=== PATIENT | female | born 1980 | race American Indian/Alaskan Native ===

== ENCOUNTER 2022-01-13 18:07 | Observation (INO) | payer OTHER ==
[2022-01-13] MEDS ORDERED: oxyCODONE /ACETAMINOPHEN 5-325MG TAB PO PRN (19:18)
[2022-01-13] MEDS ORDERED: ONDANSETRON 4 MG/2 ML INJ IV PRN (19:18)
[2022-01-13] MEDS ORDERED: SODIUM CHLORIDE 0.9% 500 ML 500 ML IV ONE (19:21)
--- NOTE | 2022-01-13 19:23 | History and Physical Report ---
History of Present Illness Date of examination: 01/13/22 Date of admission: 01/13/2022 Chief complaint: Dizziness History of present illness: Patient with h/o AUB and symptomatic anemia who is presenting for direct admission for transfusion. Called this afternoon for Hgb of 5.5 to come in for blood transfusion. Complains of menorrhagia and dysmenorrhea for the past year, but no bleeding currently. Notes lightheadedness today, almost passing out when getting out of the shower. Also notes headache. Denies chest pain, palpitations, and SOB. . Notes after her first unit her headache and dizziness have improved some. Agrees to second unit of blood. Past History Past Medical History: no pertinent history Past Surgical History: other (BTL) Family/Genetic History: cancer (colon) Social history: no significant social history - Obstetrical History : 4 Para: 4 Hx # Term Pregnancies: 4 Number of Pregnancies: 0 Spontaneous Abortions: 0 Induced : 0 Number of Living Children: 4 Medications and Allergies Allergies Allergy/AdvReac Type Severity Reaction Status Date / Time No Known Allergies Allergy Unverified 01/13/22 18:09 Active Meds: Active Medications Acetaminophen (Acetaminophen 325 Mg Tab) 650 mg PO Q4H PRN PRN Reason: Pain MILD(1-3)/Fever >100.5/STUBBS Ondansetron HCl (Ondansetron 4 Mg/2 Ml Inj) 4 mg IV Q8H PRN PRN Reason: Nausea And Vomiting Oxycodone/Acetaminophen (Oxycodone /Acetaminophen 5-325mg Tab) 1 tab PO Q6H PRN PRN Reason: Pain, Moderate (4-6) Sodium Chloride (Sodium Chloride 0.9% 10 Ml Flush Syringe) 10 ml IV BID CHATA Sodium Chloride (Sodium Chloride 0.9% 10 Ml Flush Syringe) 10 ml IV PRN PRN PRN Reason: LINE FLUSH Review of Systems Constitutional: weakness, other (dizziness) Neurological: headaches Results Result Diagrams: 01/14/22 05:53 All other labs normal. Assessment and Plan Patient with Hgb 5.5 Admit to observation Will proceed with transfusion of PRBCs Type and crossed for 2 units Post transfusion H/H 4 hours following completion of transfusion - Patient Problems (1) Abnormal uterine bleeding (AUB) Current Visit: Yes Status: Acute (2) Symptomatic anemia Current Visit: Yes Status: Acute
[2022-01-13] MEDS: ACETAMINOPHEN 325 MG TAB PO PRN (20:48)
[2022-01-13] MEDS ORDERED: diphenhydrAMINE 25 MG CAP PO ONE (21:26)
[2022-01-13 21:27] LABS: Red Blood Count 4.42 M/mm3 (3.65-5.03)
[2022-01-13 21:28] LABS: Hematocrit 22.7 % (30.3-42.9); Hemoglobin 5.7 gm/dl (10.1-14.3); Mean Corpuscular HGB Conc 25 % (30-34); Mean Corpuscular Volume 52 fl (79-97); Platelet Count 116 K/mm3 (140-440); Red Cell Distribution Width 34.1 % (13.2-15.2)
[2022-01-13 22:36] LABS: Hypochromasia 3+; Total Cells Counted 100
[2022-01-13 22:37] LABS: Anisocytosis 3+; Dimorphic RBC Yes; Platelet Estimate Consistent w Auto
[2022-01-14 06:31] LABS: Hematocrit 24.5 % (30.3-42.9); Hemoglobin 6.5 gm/dl (10.1-14.3)
[2022-01-14] MEDS ORDERED: SODIUM CHLORIDE 0.9% 500 ML 500 ML IV SCH (07:00)
[2022-01-14] MEDS ORDERED: diphenhydrAMINE 25 MG CAP PO SCH (08:00)
[2022-01-14] MEDS: ACETAMINOPHEN 325 MG TAB PO PRN (11:53)
--- NOTE | 2022-01-14 12:49 | Progress Note ---
Assessment and Plan Patient s/p 1 unit prbcs wwith Hgb 5.5 ->6.5 Discussed with patient goal Hgb above 7. Recommend second unit to be transfused Will reassess H/H following transfusion If appropriate will discharge home. Patient to follow up for SIS/EMB on - Patient Problems (1) Abnormal uterine bleeding (AUB) Current Visit: Yes Status: Acute (2) Symptomatic anemia Current Visit: Yes Status: Acute Subjective - Subjective Date of service: 01/14/22 Principal diagnosis: symptomatic anemia Interval history: Patient with h/o AUB and symptomatic anemia who is HD#2 for admission for transfusion. Voices no complaints. Notes after her first unit her headache and dizziness have improved some. Agrees to second unit of blood. Patient reports: appetite normal, voiding normally, ambulating normally Objective - Vital Signs Latest vital signs: Vital Signs Temp Pulse Resp BP BP Pulse Ox 01/14/22 07:51 98.3 F 71 18 101/60 100 01/14/22 04:09 98.0 F 76 18 109/58 100 01/14/22 01:20 99.1 F 69 18 103/53 100 01/14/22 00:55 99.1 F 86 18 105/54 100 01/14/22 00:25 99.1 F 86 18 102/45 100 01/13/22 23:55 99.1 F 84 18 107/62 107/62 100 01/13/22 23:25 98.4 F 75 18 111/68 01/13/22 22:55 99.2 F 70 20 112/51 01/13/22 22:25 98.8 F 69 20 120/70 100 01/13/22 22:05 98.7 F 82 20 114/62 100 01/13/22 20:20 100 01/13/22 20:07 98.0 F 82 18 116/73 100 Intake and Output 01/13/22 01/14/22 01/14/22 23:59 07:59 15:59 Intake Total 480 0 Output Total 200 Balance 480 -200 Intake: Oral 480 Blood Product 0 0 Leukoreduced Red Blood 0 0 Cells Unit [id number] Output: Urine 200 Void 200 Other: Total, Intake Amount 240 Total, Output Amount 200 Voiding Method Toilet # Voids Void 1 1 Weight 88.451 kg - Exam Abdomen: Present: normal appearance Extremities: Present: normal - Labs Labs: Abnormal lab results 01/13/22 01/13/22 01/14/22 Range/Units 20:12 20:15 05:53 WBC 3.1 L (4.5-11.0) K/mm3 Hgb 5.7 L* 6.5 L (10.1-14.3) gm/dl Hct 22.7 L 24.5 L (30.3-42.9) % MCV 52 L (79-97) fl MCH 13 L (28-32) pg MCHC 25 L (30-34) % RDW 34.1 H (13.2-15.2) % Plt Count 116 L (140-440) K/mm3 Seg Neuts % (Manual) 79.0 H (40.0-70.0) % Basophils % (Manual) 2.0 H (0.0-1.8) % Lymphocytes # (Manual) 0.5 L (1.2-5.4) K/mm3 Crossmatch See Detail
[2022-01-14 19:48] LABS: Hematocrit 28.9 % (30.3-42.9); Hemoglobin 7.6 gm/dl (10.1-14.3)
--- NOTE | 2022-01-14 21:49 | Event Note ---
Date: 01/14/22 Post transfusion hbg>7 Spoke with RN she patient desires discharge tonight.F/u in office next week
[2022-01-14 23:25] VITALS: BP 116/52
== END 2022-01-14 23:08 | disposition home or self-care (01) ==
LOC: 3A 18:07 → UNDOADMOB 18:07 → OB 19:33
PROVIDERS: ADMIT Student in an Organized Health Care Education/Training Program; ATTEND Student in an Organized Health Care Education/Training Program
DX: N93.9 Abnormal uterine and vaginal bleeding, unspecified (principal); Z20.822 Contact with and (suspected) exposure to COVID-19; D64.9 Anemia, unspecified; Z98.51 Tubal ligation status; Z79.899 Other long term (current) drug therapy; Z98.890 Other specified postprocedural states
CPT/HCPCS: 36415; 36430; 85014; 85018; 85025; 86850; 86900; 86901; 86920; G0378; G0379; J7040; P9016; U0003; 85007